=== PATIENT | male | born 1985 | race Caucasian/White ===

== ENCOUNTER 2023-07-22 00:04 | Inpatient (IN) ==
[2023-07-22] MEDS ORDERED: OPTIRAY 320 500ml IV ONE (00:31)
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
[2023-07-22 00:43] LABS: Basophils # (auto) 0.06 K/uL (0.00-0.20); Basophils % (auto) 0.3 %; Hematocrit (blood only) 46.2 % (42.0-52.0); Hemoglobin 16.2 g/dl (14.0-18.0); Immature Granulocytes # (auto) 0.17 K/uL (0.01-0.20); Immature Granulocytes % (auto) 0.9 %; Lymphocytes # (auto) 1.02 K/uL (1.20-3.40); Lymphocytes % (auto) 5.2 %; Mean Corpuscular Hemoglobin 29.9 pg (25.0-34.0); Mean Corpuscular Hgb Conc 35.1 g/dL (32.0-36.0); Mean Corpuscular Volume 85.4 fL (80.0-100.0); Mean Platelet Volume 10.6 fL (9.4-12.4); Monocytes # (auto) 1.38 K/uL (0.11-0.59); Neutrophils # (auto) 17.06 K/uL (1.40-6.50); Neutrophils % (auto) 86.6 %; Platelet Count 292 K/uL (130-400); RDW Coefficient of Variation 12.6 % (11.5-14.5); RDW Standard Deviation 38.5 fL (36.4-46.3); Red Blood Count 5.41 M/uL (4.70-6.10); White Blood Count 19.69 K/ul (4.8-10.8)
[2023-07-22 00:43] LABS: iSTAT Ionized Calcium 1.08 mmol/l (1.12-1.32); iSTAT Potassium 3.8 mmol/L (3.3-5.0)
[2023-07-22 00:55] LABS: Alanine Aminotransferase 24 U/L (7-52); Albumin Globulin Ratio 1.6 (0.9-2); Albumin Level 4.9 gm/dl (3.4-5.0); Alkaline Phosphatase 62 U/L (34-104); Anion Gap 13 (3-11); Aspartate Aminotransferase 36 U/L (13-39); BUN Creatinine Ratio 17.9 (10-20); Bilirubin,Total 0.6 mg/dl (0.2-1.0); Blood Urea Nitrogen 19 mg/dl (6-23); Calcium 9.9 mg/dl (8.6-10.3); Carbon Dioxide 24 mmol/L (21-32); Chloride 99 mmol/L (98-107); Creatine Kinase 344 U/L (30-223); Est GFR (African American) 103.4 ml/min; Est GFR (Non-African American) 89.2 ml/min; Glucose 207 mg/dl (70-99(Fasting)); Magnesium 2.1 mg/dl (1.7-2.4); Potassium 3.8 mmol/L (3.5-5.1); Sodium 136 mmol/L (136-145); Total Protein 7.9 gm/dl (6.0-8.3)
[2023-07-22 01:04] LABS: Acetaminophen < 3 ug/ml (10-30); Salicylate < 3.0 mg/dl (3.0-30)
--- NOTE | 2023-07-22 01:27 | CT Scan Report ---
Exam(s): CT FACIAL Without Contrast EXAM: CT Maxillofacial Without Intravenous Contrast CLINICAL HISTORY: Reason for exam: Trauma. TECHNIQUE: Axial computed tomography images of the face without intravenous contrast. CTDI is 36.26 mGy and DLP is 675.5 mGy-cm. Automated exposure control was utilized for the study. A dose lowering technique was utilized adhering to the principles of ALARA. COMPARISON: No relevant prior studies available. FINDINGS: Bones/joints: No acute fractures. Orbital romero, nasal bones, nasal septum, zygomatic arches, pterygoid plates, and mandible are intact. Soft tissues: Soft tissue contusion over the left zygoma. Orbits: Unremarkable. Sinuses: Plan mucosal thickening in the ethmoids. Large mucous retention cyst in the right sphenoid sinus. Paranasal sinuses otherwise clear. No air-fluid levels. Mastoid air cells: There is an partially opacified left mastoids. Dental: Patient is edentulous. IMPRESSION: Soft tissue contusion over the left zygoma. No acute osseous findings. Electronically signed by: Neda Jc M.D. 07/22/23 01:26 AM
--- NOTE | 2023-07-22 01:35 | CT Scan Report ---
Exam(s): CT HEAD Without Contrast EXAM: CT Head Without Intravenous Contrast CLINICAL HISTORY: Reason for exam: Trauma. TECHNIQUE: Axial computed tomography images of the head/brain without intravenous contrast. CTDI is 36.79 mGy and DLP is 624.41 mGy-cm. Automated exposure control was utilized for the study. A dose lowering technique was utilized adhering to the principles of ALARA. COMPARISON: No relevant prior studies available. FINDINGS: Brain: No acute intracranial hemorrhage, mass-effect, or edema. Mclaughlin- white matter differentiation maintained. No significant white matter disease. Ventricles: Unremarkable. No hydrocephalus. Bones/joints: Unremarkable. No acute fracture. Soft tissues: Bilateral frontal and left parietal scalp swelling. Sinuses: Mucosal thickening in the ethmoids. Mucus retention cysts in the sphenoid sinus and frontal sinus. Mastoid air cells: Partially opacified mastoids. IMPRESSION: Bilateral frontal and left parietal scalp swelling. No acute intracranial process. Electronically signed by: Neda Jc M.D. 07/22/23 01:34 AM
--- NOTE | 2023-07-22 01:35 | CT Scan Report ---
Exam(s): CT CHEST With Contrast IV Amt: 87 ml EXAM: CT Chest With Intravenous Contrast CLINICAL HISTORY: Reason for exam: Trauma. TECHNIQUE: Axial computed tomography images of the chest with intravenous contrast. CTDI is 17.4 mGy and DLP is 380.74 mGy-cm. Automated exposure control was utilized for the study. A dose lowering technique was utilized adhering to the principles of ALARA. CONTRAST: Patient received 87 ml of IV contrast COMPARISON: No relevant prior studies available. FINDINGS: There is an acute nondisplaced fracture of lateral left rib 9. No other fractures are identified within the chest. There is subcutaneous emphysema and soft tissue swelling overlying the left rib fracture. There is a 5-10% left apical pneumothorax and a trace left pleural effusion. Bilateral lung hooks are otherwise unremarkable. There is no traumatic aortic injury, aortic aneurysm, or dissection. There is no mediastinal hematoma. Main pulmonary artery is normal. Heart size is normal. There is no pericardial effusion. There is no lymphadenopathy. IMPRESSION: 1. Acute nondisplaced fracture lateral left rib 9. Overlying chest subcutaneous emphysema. 2. Approximately 5-10% left apical pneumothorax. 3. Trace left pleural effusion. 4. No other acute traumatic findings. Communications: Call Doctor Pneumothorax Electronically signed by: Neda Jc M.D. 07/22/23 01:34 AM
--- NOTE | 2023-07-22 01:35 | CT Scan Report ---
Exam(s): CT C SPINE EXAM: CT Cervical Spine Without Intravenous Contrast CLINICAL HISTORY: Reason for exam: Trauma. TECHNIQUE: Axial computed tomography images of the cervical spine without intravenous contrast. CTDI is 36.26 mGy and DLP is 711.76 mGy-cm. Automated exposure control was utilized for the study. A dose lowering technique was utilized adhering to the principles of ALARA. COMPARISON: No relevant prior studies available. FINDINGS: Vertebrae: Incomplete posterior arch of C1, a developmental variant. No acute fracture or traumatic subluxation. Discs/spinal canal/neural foramina: No acute findings. No spinal canal stenosis. Soft tissues: Unremarkable. Pleural space: Small left apical pneumothorax. IMPRESSION: Small left apical pneumothorax. No acute cervical spine fractures. Electronically signed by: Neda Jc M.D. 07/22/23 01:34 AM
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
[2023-07-22] MEDS: SODIUM CHLORIDE 0.9% 1,000 ML IV SCH ×3 (05:31→20:22)
[2023-07-22] MEDS: cefTRIAXone SODIUM 2,000 MG in DEXTROSE 5 % MINI-B 50 ML IV SCH (05:33)
[2023-07-22 07:20] LABS: Basophils # (auto) 0.02 K/uL (0.00-0.20); Basophils % (auto) 0.2 %; Hematocrit (blood only) 45.1 % (42.0-52.0); Hemoglobin 16.4 g/dl (14.0-18.0); Immature Granulocytes # (auto) 0.05 K/uL (0.01-0.20); Immature Granulocytes % (auto) 0.4 %; Lymphocytes # (auto) 0.57 K/uL (1.20-3.40); Lymphocytes % (auto) 4.4 %; Mean Corpuscular Hemoglobin 30.4 pg (25.0-34.0); Mean Corpuscular Hgb Conc 36.4 g/dL (32.0-36.0); Mean Corpuscular Volume 83.7 fL (80.0-100.0); Mean Platelet Volume 10.5 fL (9.4-12.4); Monocytes # (auto) 0.85 K/uL (0.11-0.59); Monocytes % (auto) 6.6 %; Neutrophils # (auto) 11.35 K/uL (1.40-6.50); Neutrophils % (auto) 88.4 %; Platelet Count 254 K/uL (130-400); RDW Coefficient of Variation 12.6 % (11.5-14.5); RDW Standard Deviation 38.1 fL (36.4-46.3); Red Blood Count 5.39 M/uL (4.70-6.10); White Blood Count 12.84 K/ul (4.8-10.8)
[2023-07-22 07:37] LABS: BUN Creatinine Ratio 21.9 (10-20); Calcium 9.8 mg/dl (8.6-10.3); Creatinine Clr Calc Pharmacy 99.8 ml/min; Est GFR (African American) 116.6 ml/min; Est GFR (Non-African American) 100.6 ml/min; Potassium 4.3 mmol/L (3.5-5.1)
--- NOTE | 2023-07-22 07:46 | XRay Report ---
SINGLE VIEW CHEST CLINICAL HISTORY: Trauma. FINDINGS: An AP, portable, upright chest radiograph is correlated with chest CT performed earlier the same day dated 07/22/2023. The cardiomediastinal silhouette is unremarkable. The lungs and pleural s paces are clear. There is trace left apical pneumothorax. The bony thorax is grossly intact. IMPRESSION: 1. Trace left apical pneumothorax. 2. No airspace consolidation or large pleural effusion is identified. 3. Left-sided rib fractures seen by CT are not well visualized by x-ray. ACT 112: Negative or not required by law. Electronically signed by: Sajan Morgan M.D. 07/22/2023 7:43 AM
--- NOTE | 2023-07-22 08:23 | Pulmonary Consultation ---
Date of Consultation July 22, 2023 Assessment & Plan (1) Pneumothorax: Encounter type: initial encounter Pneumothorax type: traumatic Qualified Code(s): S27.0XXA - Traumatic pneumothorax, initial encounter (2) Fracture of rib: Encounter type: initial encounter Fracture type: closed L aterality: left Rib fracture type: single rib Qualified Code(s): S22.32XA - Fracture of one rib, left side, initial encounter for closed fracture Plan CT chest 07/22/2023 personally reviewed: Multiple left-sided apical blebs with small left apical pneumothorax No significant mediastinal lymphadenopathy Fractured ribs left 8 and 9 with subcu emphysema -- Traumatic small left apical pneumothorax Likely from the rib fractures that he got -- Left apical blebs Plan: Chest x-ray from early in the morning today did not show any clear pneumothorax. Continue with conservative management Nonrebreather, avoid positive pressure ventilation, avoid flutter valve Pain management No lifting anything heavy or strenuous exercise for at least 2-3 weeks No flying or scuba diving for at least 4-6 weeks Case was discussed with primary team. No further recommendation from pulmonary perspective, will sign off Please call directly with any questions Please note the above document was generated using voice recognition software. It may contain grammatical, syntax or spelling errors.Any formal questions or concerns about the content, text or information contained within the body of this dictation should be directly addressed to the provider for clarification. History of Present Illness Attending Physician: Janis Mathews MD History of Present Illness 38-year-old male admitted to the hospital for chest pain Past medical history: Depression, drug use currently on Suboxone And was found to have small left apical pneumothorax for which pulmonary consulted Present guards were in the room at the time of examination At the time of examination patient was not in any respiratory distress. He was saturating 98% on room air Respiratory rate was in the mid teens. Did complain of some left lateral lower chest pain which has decreased in amount. Denies any nausea vomiting No headache, no blurry vision No fever or chills No dysuria, no diarrhea No headache, no blurry vision Social history: Used to snort heroin, used to smoke some cigarettes not currently since being incarcerated Allergies Allergy/AdvReac Type Severity Reaction Status Date / Time amoxicillin [From Augmentin] Allergy Mild Rash Verified 07/22/23 00:22 clavulanic acid Allergy Mild Rash Verified 07/22/23 00:22 [From Augmentin] Home Medications Medication Instructions Recorded Confirmed Type escitalopram oxalate 10 mg tablet 10 mg PO HS 11/23/20 07/22/23 History (Lexapro) mirtazapine 15 mg tablet 15 mg PO HS 11/23/20 07/22/23 History buprenorphine 8.6 mg-naloxone 2.1 2 tab sublingual DAILY 07/22/23 07/22/23 History mg sublingual tablet Patient History Medical History Depression Hx of skin pruritus Acquired deviated nasal septum Chronic mastoiditis of left side Chronic mastoiditis of right side Surgical History History of ear surgery right tympanomastoidectomy and left T-Tube on 12/17/20 History of placement of ear tubes as a child Family History Other No family history of adverse response to anesthesia No family history of bleeding disorder Social History Smoking Status: Current every day smoker Tobacco Type: Cigarettes Hx Alcohol Use: Yes Hx Substance Use: Yes Preferred Language: Romansh 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 Beliefs That Will Affect Care: None Current Living Situation: Other Current Living Situation Comment: inmate Feels Safe at Home: Hesitant to Answer Review of Systems 2 Review of Systems: All systems reviewed & are unremarkable except as noted in HPI & below Physical Exam 2 Physical Exam: Constitutional: No acute distress HEENT: EOMI, PERRLA Respiratory system: Good air entry laterally, no wheeze, no rhonchi, no crackles, subcu emphysema appreciated on the left lateral lower ribs CVS: S1-S2 positive, no murmurs or gallops Abdomen: Soft, nontender, nondistended, positive bowel sounds x4 Extremities: +2 pulses bilaterally radialis/ dorsalis pedis, no cyanosis, no edema Neuro: Awake alert oriented x3 Psych: Normal mood and affect G/U: No [place] Skin: Tattoos appreciated all over the body bilaterally upper and lower extremities Skin: no rashes, warm and dry Lymphatic: no cervical or axillary lymphadenopathy Results & Data Results & Data Vital Signs (Past 12 Hours) Vital Signs Temp Pulse Resp BP Pulse Ox O2 Del Method 07/22/23 07:25 88 07/22/23 06:30 87 16 138/94 96 Room Air 07/22/23 06:00 82 14 147/93 H 96 Room Air 07/22/23 05:30 83 19 145/100 H 99 07/22/23 05:00 81 19 154/97 H 95 Room Air 07/22/23 04:30 76 15 153/100 H 95 07/22/23 04:07 86 07/22/23 04:00 83 18 158/96 H 98 Room Air 07/22/23 03:30 88 21 153/94 H 98 Room Air 07/22/23 03:00 91 H 20 152/95 H 97 Room Air 07/22/23 02:30 91 H 17 142/96 H 96 Room Air 07/22/23 02:00 92 H 19 147/93 H 98 Room Air 07/22/23 01:30 81 19 150/97 H 98 Room Air 07/22/23 01:00 90 19 134/85 98 07/22/23 01:00 100 Room Air 07/22/23 01:00 36.8 C 82 19 134/78 100 Room Air 07/22/23 00:13 99 Room Air 07/22/23 00:12 94 H Laboratory Results 07/22/23 06:59 07/22/23 06:59 PG Care Time/CCT Total # of Minutes Spent Total Time Spent with Patient: Total time spent is greater than 50% in coordination of care (as documented) at patient's floor/unit and/or counseling patient: Coding Level of Care Code 75162 INT INP/OBS CARE 3/75MIN Diagnoses Pneumothorax S27.0XXA Encounter type: initial encounter Pneumothorax type: traumatic Fracture of rib S22.32XA Encounter type: initial encounter Fracture type: closed Laterality: left Rib fracture type: single rib
[2023-07-22] MEDS: BUPRENORPHINE/NALOXONE 8/2 MG TAB SL SCH (08:30)
--- NOTE | 2023-07-22 08:47 | XRay Report ---
SINGLE VIEW CHEST CLINICAL HISTORY: Follow-up pneumothorax FINDINGS: An AP, portable, upright chest radiograph is compared to chest x-ray and chest CT performed earlier the same day dated 07/22/2023. The cardiomediastinal silhouette is unremarkable. The lungs a nd pleural spaces are clear. No pneumothorax is clearly seen. The bony thorax is grossly intact. Know n left-sided rib fractures seen by CT are not well visualized by x-ray. IMPRESSION: 1. There is no airspace consolidation or large pleural effusion. 2. The trace left apical pneumothorax seen previously is no longer definitively identified. ACT 112: Negative or not required by law. Electronically signed by: Sajan Morgan M.D. 07/22/2023 8:46 AM
[2023-07-22] MEDS ORDERED: BUPRENORPHINE NALOXONE SL SCH (09:00)
--- NOTE | 2023-07-22 09:06 | Electrocardiogram Report ---
Test Reason : Blood Pressure : / mmHG Vent. Rate : 092 BPM Atrial Rate : 092 BPM P-R Int : 146 ms QRS Dur : 088 ms QT Int : 348 ms P-R-T Axes : 068 090 059 degrees QTc Int : 430 ms Normal sinus rhythm Rightward axis Borderline ECG No previous ECGs available Confirmed by Jonas Simmons ([id number]) on 07/22/2023 9:05:57 AM Referred By: Steven REYNOSO Confirmed By:Jonas Simmons
[2023-07-22 11:42] LABS: Amphetamines+Metham, Urine Neg (Neg); Barbiturates, Urine Neg (Neg); Benzodiazepine, Urine Neg (Neg); Cocaine, Urine Neg (Neg); MDMA (Ecstacy), Urine Neg (Neg); Marijuana, Urine Neg (Neg); Methadone, Urine Neg (Neg); Opiate, Urine Neg (Neg); Phencyclidine, Urine Neg (Neg)
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
[2023-07-22] MEDS ORDERED: ONDANSETRON INJ 2 MG/ML 2 ML VIAL IV SCH (21:00)
[2023-07-22] MEDS: ESCITALOPRAM OXALATE 10 MG TAB PO SCH (22:10)
[2023-07-22] MEDS: MIRTAZAPINE TAB 15 MG TAB PO SCH (22:11)
[2023-07-22] MEDS: ACETAMINOPHEN 325 MG TAB PO PRN (22:11)
[2023-07-22] MEDS ORDERED: ONDANSETRON 4 MG OD TAB PO PRN (23:03)
[2023-07-23] MEDS: ACETAMINOPHEN 325 MG TAB PO PRN ×2 (03:45→21:52)
[2023-07-23 07:20] LABS: Hematocrit (blood only) 39.8 % (42.0-52.0); Hemoglobin 13.6 g/dl (14.0-18.0); Mean Corpuscular Hemoglobin 29.8 pg (25.0-34.0); Mean Corpuscular Hgb Conc 34.2 g/dL (32.0-36.0); Mean Corpuscular Volume 87.3 fL (80.0-100.0); Mean Platelet Volume 10.8 fL (9.4-12.4); Platelet Count 190 K/uL (130-400); RDW Coefficient of Variation 12.8 % (11.5-14.5); RDW Standard Deviation 40.4 fL (36.4-46.3); Red Blood Count 4.56 M/uL (4.70-6.10); White Blood Count 9.97 K/ul (4.8-10.8)
[2023-07-23 07:51] LABS: BUN Creatinine Ratio 19.1 (10-20); Calcium 9.1 mg/dl (8.6-10.3); Creatinine Clr Calc Pharmacy 140.5 ml/min; Est GFR (African American) 141.4 ml/min; Magnesium 2.2 mg/dl (1.7-2.4); Phosphorus 3.3 mg/dl (2.5-4.9)
[2023-07-23] MEDS: BUPRENORPHINE/NALOXONE 8/2 MG TAB SL SCH (09:28)
[2023-07-23] MEDS: cefTRIAXone SODIUM 2,000 MG in DEXTROSE 5 % MINI-B 50 ML IV SCH (09:28)
[2023-07-23] MEDS: SODIUM CHLORIDE 0.9% 1,000 ML IV SCH ×3 (12:25→17:34)
[2023-07-23] MEDS ORDERED: TAMSULOSIN HCL 0.4 MG CAP PO ONE (12:54)
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
[2023-07-23] MEDS: MIRTAZAPINE TAB 15 MG TAB PO SCH (21:52)
[2023-07-23] MEDS: ESCITALOPRAM OXALATE 10 MG TAB PO SCH (21:52)
[2023-07-24] MEDS: SODIUM CHLORIDE 0.9% 1,000 ML IV SCH ×5 (00:09→21:29)
[2023-07-24] MEDS: cefTRIAXone SODIUM 2,000 MG in DEXTROSE 5 % MINI-B 50 ML IV SCH (05:37)
[2023-07-24 06:44] LABS: Hematocrit (blood only) 35.5 % (42.0-52.0); Hemoglobin 12.5 g/dl (14.0-18.0); Mean Corpuscular Hemoglobin 30.1 pg (25.0-34.0); Mean Corpuscular Hgb Conc 35.2 g/dL (32.0-36.0); Mean Corpuscular Volume 85.5 fL (80.0-100.0); Mean Platelet Volume 10.8 fL (9.4-12.4); Platelet Count 160 K/uL (130-400); RDW Coefficient of Variation 12.6 % (11.5-14.5); RDW Standard Deviation 39.7 fL (36.4-46.3); Red Blood Count 4.15 M/uL (4.70-6.10); White Blood Count 7.71 K/ul (4.8-10.8)
[2023-07-24 07:12] LABS: BUN Creatinine Ratio 19.4 (10-20); Calcium 8.5 mg/dl (8.6-10.3); Creatinine Clr Calc Pharmacy 157.8 ml/min; Est GFR (African American) 146.9 ml/min; Est GFR (Non-African American) 126.7 ml/min; Potassium 3.8 mmol/L (3.5-5.1)
[2023-07-24 07:20] LABS: Phosphorus 2.7 mg/dl (2.5-4.9)
[2023-07-24] MEDS: BUPRENORPHINE/NALOXONE 8/2 MG TAB SL SCH (08:20)
[2023-07-24] MEDS: TAMSULOSIN HCL 0.4 MG CAP PO SCH (08:21)
[2023-07-24] MEDS ORDERED: Nursing to Pharmacy Communication SCH (12:00)
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
[2023-07-24] MEDS: MIRTAZAPINE TAB 15 MG TAB PO SCH (21:31)
[2023-07-24] MEDS: ESCITALOPRAM OXALATE 10 MG TAB PO SCH (21:31)
[2023-07-24] MEDS: ACETAMINOPHEN 325 MG TAB PO PRN (21:32)
[2023-07-25] MEDS: SODIUM CHLORIDE 0.9% 1,000 ML IV SCH ×5 (02:34→23:51)
[2023-07-25] MEDS: ACETAMINOPHEN 325 MG TAB PO PRN ×3 (06:27→18:26)
[2023-07-25] MEDS: cefTRIAXone SODIUM 2,000 MG in DEXTROSE 5 % MINI-B 50 ML IV SCH (06:27)
[2023-07-25 07:11] LABS: Anion Gap 4 (3-11); BUN Creatinine Ratio 21.4 (10-20); Blood Urea Nitrogen 12 mg/dl (6-23); Calcium 8.6 mg/dl (8.6-10.3); Carbon Dioxide 29 mmol/L (21-32); Chloride 108 mmol/L (98-107); Creatinine Clr Calc Pharmacy 182.1 ml/min; Est GFR (African American) > 150.0 ml/min; Est GFR (Non-African American) 132.1 ml/min; Glucose 90 mg/dl (70-99(Fasting)); Potassium 3.7 mmol/L (3.5-5.1); Sodium 141 mmol/L (136-145)
[2023-07-25 07:29] LABS: Creatine Kinase 2879 U/L (30-223)
[2023-07-25] MEDS: BUPRENORPHINE/NALOXONE 8/2 MG TAB SL SCH (08:19)
[2023-07-25] MEDS: TAMSULOSIN HCL 0.4 MG CAP PO SCH (08:20)
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
[2023-07-25] MEDS ORDERED: KETOROLAC TROMETHAMINE 15 MG/ML VIAL IV ONE (19:03)
[2023-07-25] MEDS: ESCITALOPRAM OXALATE 10 MG TAB PO SCH (20:05)
[2023-07-25] MEDS: MIRTAZAPINE TAB 15 MG TAB PO SCH (20:08)
[2023-07-25] MEDS ORDERED: LACTULOSE SYRUP 30 GM/45 ML UDP PO STA (20:49)
[2023-07-26] MEDS: POLYETHYLENE (MIRALAX) 17 GM PACK PO PRN ×2 (00:17→22:15)
[2023-07-26] MEDS: SODIUM CHLORIDE 0.9% 1,000 ML IV SCH ×4 (04:56→20:18)
[2023-07-26] MEDS: cefTRIAXone SODIUM 2,000 MG in DEXTROSE 5 % MINI-B 50 ML IV SCH (04:56)
[2023-07-26 07:40] LABS: Anion Gap 5 (3-11); BUN Creatinine Ratio 21.1 (10-20); Blood Urea Nitrogen 12 mg/dl (6-23); Calcium 8.6 mg/dl (8.6-10.3); Carbon Dioxide 30 mmol/L (21-32); Chloride 107 mmol/L (98-107); Est GFR (African American) > 150.0 ml/min; Est GFR (Non-African American) 131.2 ml/min; Glucose 91 mg/dl (70-99(Fasting)); Potassium 3.8 mmol/L (3.5-5.1); Sodium 142 mmol/L (136-145)
[2023-07-26 07:57] LABS: Creatine Kinase 3586 U/L (30-223)
[2023-07-26] MEDS: BUPRENORPHINE/NALOXONE 8/2 MG TAB SL SCH (08:05)
[2023-07-26] MEDS: TAMSULOSIN HCL 0.4 MG CAP PO SCH (08:05)
[2023-07-26] MEDS: KETOROLAC TROMETHAMINE 15 MG/ML VIAL IV PRN ×2 (10:00→16:28)
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
[2023-07-26] MEDS: ESCITALOPRAM OXALATE 10 MG TAB PO SCH (20:19)
[2023-07-26] MEDS: MIRTAZAPINE TAB 15 MG TAB PO SCH (20:19)
[2023-07-26] MEDS: HEPARIN SOD 5,000 UNIT/0.5 ML VIAL SQ SCH (21:56)
[2023-07-26] MEDS: ACETAMINOPHEN 325 MG TAB PO PRN (22:15)
[2023-07-27] MEDS ORDERED: TAMSULOSIN HCL 0.4 MG CAP PO SCH
[2023-07-27] MEDS ORDERED: IBUPROFEN 200 MG TAB PO SCH
[2023-07-27] MEDS: SODIUM CHLORIDE 0.9% 1,000 ML IV SCH ×3 (01:22→11:43)
[2023-07-27] MEDS: cefTRIAXone SODIUM 2,000 MG in DEXTROSE 5 % MINI-B 50 ML IV SCH (06:05)
[2023-07-27 06:49] LABS: Hemoglobin 12.3 g/dl (14.0-18.0); Mean Corpuscular Hemoglobin 30.3 pg (25.0-34.0); Mean Corpuscular Hgb Conc 35.1 g/dL (32.0-36.0); Mean Corpuscular Volume 86.2 fL (80.0-100.0); Mean Platelet Volume 10.5 fL (9.4-12.4); Platelet Count 202 K/uL (130-400); RDW Coefficient of Variation 12.5 % (11.5-14.5); RDW Standard Deviation 39.1 fL (36.4-46.3); Red Blood Count 4.06 M/uL (4.70-6.10); White Blood Count 6.26 K/ul (4.8-10.8)
[2023-07-27 07:23] LABS: Anion Gap 4 (3-11); BUN Creatinine Ratio 20.7 (10-20); Blood Urea Nitrogen 12 mg/dl (6-23); Calcium 8.7 mg/dl (8.6-10.3); Carbon Dioxide 31 mmol/L (21-32); Chloride 106 mmol/L (98-107); Creatinine Clr Calc Pharmacy 173.6 ml/min; Est GFR (African American) > 150.0 ml/min; Est GFR (Non-African American) 130.3 ml/min; Glucose 92 mg/dl (70-99(Fasting)); Potassium 3.9 mmol/L (3.5-5.1); Sodium 141 mmol/L (136-145)
[2023-07-27 07:54] LABS: Creatine Kinase 2233 U/L (30-223); Magnesium 1.9 mg/dl (1.7-2.4)
[2023-07-27] MEDS: ACETAMINOPHEN 325 MG TAB PO PRN (08:15)
[2023-07-27] MEDS: HEPARIN SOD 5,000 UNIT/0.5 ML VIAL SQ SCH (08:15)
[2023-07-27] MEDS: TAMSULOSIN HCL 0.4 MG CAP PO SCH (08:15)
[2023-07-27] MEDS: BUPRENORPHINE/NALOXONE 8/2 MG TAB SL SCH (08:21)
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
[2023-07-27] MEDS ORDERED: IBUPROFEN 200 MG TAB PO PRN (15:47)
[2023-07-27] MEDS ORDERED: CEFDINIR 300 MG CAP PO SCH ×2 (21:00)
== END 2023-07-27 17:40 | DRG 200 ==
LOC: ED 00:04 → EDINP 02:30 → 2S 04:34